=== PATIENT | female | born 1950 | race Hispanic/Latino ===

== ENCOUNTER 2018-05-15 11:00 | Day surgery (SDC) | payer MEDICARE ==
[~2018-05-15 11:00] MED LIST: DILAUDID IV PRN; LACTATED RINGERS 1,000 ML IV SCH; VERSED IV NR
[2018-05-15] MEDS ORDERED: MYDRIACYL ONE (11:36)
[2018-05-15] MEDS ORDERED: AK-Dilate ONE (11:37)
[2018-05-15] MEDS ORDERED: IOPIDINE ONE (11:37)
[2018-05-15] MEDS ORDERED: MYDRIACYL OU ONE (11:43)
[2018-05-15] MEDS ORDERED: IOPIDINE OU ONE ×2 (11:43→12:23)
[2018-05-15] MEDS ORDERED: AK-Dilate OU ONE (11:43)
[2018-05-15 13:00] VITALS: BP 154/64
== END 2018-05-15 12:25 | disposition home or self-care (01) ==
LOC: OR 11:00
PROVIDERS: ATTEND Ophthalmology
DX: H26.493 Other secondary cataract, bilateral (principal); I10 Essential (primary) hypertension; K21.9 Gastro-esophageal reflux disease without esophagitis; E03.9 Hypothyroidism, unspecified; Z90.710 Acquired absence of both cervix and uterus